=== PATIENT | female | born 1960 | race American Indian/Alaskan Native ===

== ENCOUNTER 2017-01-07 11:04 | Emergency (ER) | payer OTHER ==
[2017-01-07 11:18] VITALS: BP 155/96
--- NOTE | 2017-01-07 14:38 | Emergency Department Report ---
ED General Adult HPI - General Chief complaint: High BP Stated complaint: HIGH BP Time Seen by Provider: 01/07/17 14:04 Source: patient Mode of arrival: Ambulatory Limitations: No Limitations - History of Present Illness Initial comments: Patient was sent here from the dentist office for elevated blood pressure. Patient states that the dental office her blood pressure was 189/103. Upon arrival here her blood pressure was 155/96. She denies history of hypertension. Denies headache, dizziness, blurred vision, chest pain. Location: mouth Severity scale (0 -10): 10 Quality: aching, dull Consistency: constant Improves with: none Worsens with: none Associated Symptoms: denies other symptoms - Related Data Previous Rx's Medication Instructions Recorded Last Taken Type amLODIPine [Norvasc] 5 mg PO DAILY #14 tab 01/07/17 Unknown Rx Allergies Allergy/AdvReac Type Severity Reaction Status Date / Time No Known Allergies Allergy Unverified 01/07/17 11:19 ED Review of Systems ROS: Stated complaint: HIGH BP Other details as noted in HPI Constitutional: denies: chills, fever Eyes: denies: eye pain, eye discharge, vision change ENT: as per HPI, dental pain Respiratory: denies: cough, shortness of breath, wheezing Cardiovascular: denies: chest pain, palpitations Gastrointestinal: denies: abdominal pain, nausea, diarrhea Genitourinary: denies: urgency, dysuria, discharge Musculoskeletal: denies: back pain, joint swelling, arthralgia Skin: denies: rash, lesions Neurological: denies: headache, weakness, paresthesias ED Past Medical Hx - Past Medical History Hx Diabetes: Yes Additional medical history: HIGH CHOLESTEROL - Surgical History Additional Surgical History: TUBAL LIGATION. PARTIAL HYSTERECTOMY - Social History Smoking Status: Never Smoker Substance Use Type: None - Medications Home Medications: Home Medications Medication Instructions Recorded Confirmed Last Taken Type amLODIPine [Norvasc] 5 mg PO DAILY #14 tab 01/07/17 Unknown Rx ED Physical Exam - General Limitations: No Limitations General appearance: alert, in no apparent distress - Head Head exam: Present: atraumatic, normocephalic - Eye Eye exam: Present: normal appearance - ENT ENT exam: Present: mucous membranes moist - Neck Neck exam: Present: normal inspection, tenderness (left cervical anterior), full ROM - Respiratory Respiratory exam: Present: normal lung sounds bilaterally. Absent: respiratory distress - Cardiovascular Cardiovascular Exam: Present: regular rate, normal rhythm. Absent: systolic murmur, diastolic murmur, rubs, gallop - GI/Abdominal GI/Abdominal exam: Present: soft, normal bowel sounds - Neurological Exam Neurological exam: Present: alert, oriented X3 - Psychiatric Psychiatric exam: Present: normal affect, normal mood - Skin Skin exam: Present: warm, dry, intact, normal color. Absent: rash ED Course Vital Signs 01/07/17 11:10 Temperature 98.3 F Pulse Rate 77 Respiratory 19 Rate Blood Pressure 155/96 O2 Sat by Pulse 99 Oximetry ED Medical Decision Making - Medical Decision Making Patient presents with elevated blood pressure. She was at dental office this morning to have a tooth pulled which she cannot have done. She states they did give her amoxicillin for tooth abscess. I will give her Norvasc 5 mg and advised her to follow-up with PCP. - Differential Diagnosis hypertension, dental pain, tooth abscess Critical Care Time: No Critical care attestation.: If time is entered above; I have spent that time in minutes in the direct care of this critically ill patient, excluding procedure time. ED Disposition Clinical Impression: Tooth abscess, Hypertension Disposition: DISCHARGED TO HOME OR SELFCARE Is pt being admited?: No Does the pt Need Aspirin: No Condition: Stable Instructions: Hypertension (ED), Dental Abscess (ED) Additional Instructions: Follow-up with PCP as discussed. Please be advised that elevated blood pressure not control can lead to heart attack, stroke, end organ failure. Prescriptions: amLODIPine [Norvasc] 5 mg PO DAILY #14 tab Referrals: JACK MCGHEE MD [Primary Care Provider] - 3-5 Days [facility] [Outside] - 3-5 Days Forms: Work/School Release Form(ED) Time of Disposition: 14:40
== END 2017-01-07 14:48 | disposition home or self-care (01) ==
LOC: ED 11:04
DX: I10 Essential (primary) hypertension (principal); K04.7 Periapical abscess without sinus; E11.9 Type 2 diabetes mellitus without complications; E78.00 Pure hypercholesterolemia, unspecified
CPT/HCPCS: 99282

== ENCOUNTER 2021-08-31 16:29 | Emergency (ER) | payer OTHER ==
[2021-08-31] MEDS ORDERED: oxyCODONE /ACETAMINOPHEN 5-325MG TAB PO ONE (17:14)
--- NOTE | 2021-08-31 17:58 | XRay Report ---
RIGHT FOOT 3 VIEWS INDICATION / CLINICAL INFORMATION: Right great toe wound, suspected osteoma myelitis COMPARISON: None available. FINDINGS: BONES and JOINT(S): No acute fracture or subluxation. No suspicious cortical destruction. There is an inferior calcaneal enthesophyte without other significant arthritis. SOFT TISSUES: Severe edema is seen throughout the first with a plantar wing measuring approximately 8 mm. There is severe generalized atherosclerosis. ADDITIONAL FINDINGS: None. IMPRESSION: Right first toe wound with associated edema without radiographic evidence of osteomyelitis. Signer Name: Antony Santiago MD Signed: 08/31/2021 5:54 PM Workstation Name: [id number]
[2021-08-31 18:28] LABS: Alanine Aminotransferase 12 units/L (7-56); Albumin 3.7 g/dL (3.9-5); BUN/Creatinine Ratio 14; Blood Urea Nitrogen 13 mg/dL (7-17); Calcium 9.3 mg/dL (8.4-10.2); Hemolysis Index 15
--- NOTE | 2021-08-31 18:33 | Emergency Department Report ---
ED General Adult HPI - General Chief complaint: Extremity Injury, Lower Stated complaint: RT FOOT TOE INFECTION Time Seen by Provider: 08/31/21 17:06 Source: patient Mode of arrival: Ambulatory Limitations: No Limitations - History of Present Illness Initial comments: 61-year-old -[place] female patient with history of hypertension and diabetes presents with complaints of right great toe pain and swelling x1 month. Patient states her symptoms began after cutting a callus with nail clippers. She states over the past few days the pain has worsened and rates it as a 10/10 in severity. Patient states compliance with her antihypertensive meds and diabetic medications, however she states that her diabetes is not well controlled and her numbers are normally in the 200s for her blood glucose. She denies any fever/chills/sweats or difficulty moving her foot. Severity scale (0 -10): 7 - Related Data Previous Rx's Medication Instructions Recorded Last Taken Type amLODIPine [Norvasc] 5 mg PO DAILY #14 tab 01/07/17 Unknown Rx Acetaminophen/Codeine [Tylenol 1 tab PO Q8H PRN #10 tab 08/31/21 Unknown Rx /Codeine # 3 tab] Clindamycin [Clindamycin CAP] 300 mg PO Q6H 10 Days #40 capsule 08/31/21 Unknown Rx Ibuprofen [Motrin 800 MG tab] 800 mg PO Q8HR PRN #20 tablet 08/31/21 Unknown Rx Mupirocin [Bactroban 2% OINT] 1 applic TP TID 14 Days #1 tube 08/31/21 Unknown Rx Allergies Allergy/AdvReac Type Severity Reaction Status Date / Time No Known Allergies Allergy Verified 08/31/21 17:03 ED Review of Systems ROS: Stated complaint: RT FOOT TOE INFECTION Other details as noted in HPI Constitutional: denies: chills, diaphoresis, fever, malaise, weakness Gastrointestinal: denies: nausea, vomiting Musculoskeletal: joint swelling, arthralgia Skin: denies: change in color Neurological: abnormal gait. denies: numbness, paresthesias ED Past Medical Hx - Past Medical History Hx Hypertension: Yes Hx Diabetes: Yes Additional medical history: HIGH CHOLESTEROL - Surgical History Additional Surgical History: TUBAL LIGATION. PARTIAL HYSTERECTOMY - Social History Smoking Status: Never Smoker - Medications Home Medications: Home Medications Medication Instructions Recorded Confirmed Last Taken Type amLODIPine [Norvasc] 5 mg PO DAILY #14 tab 01/07/17 Unknown Rx Acetaminophen/Codeine [Tylenol 1 tab PO Q8H PRN #10 tab 08/31/21 Unknown Rx /Codeine # 3 tab] Clindamycin [Clindamycin CAP] 300 mg PO Q6H 10 Days #40 capsule 08/31/21 Unknown Rx Ibuprofen [Motrin 800 MG tab] 800 mg PO Q8HR PRN #20 tablet 08/31/21 Unknown Rx Mupirocin [Bactroban 2% OINT] 1 applic TP TID 14 Days #1 tube 08/31/21 Unknown Rx ED Physical Exam - General Limitations: No Limitations General appearance: alert, in no apparent distress - Head Head exam: Present: atraumatic, normocephalic - Eye Eye exam: Present: normal appearance. Absent: scleral icterus - Respiratory Respiratory exam: Absent: respiratory distress - Cardiovascular Cardiovascular Exam: Present: regular rate, normal rhythm - Extremities Exam Extremities exam: Present: other (Significant swelling noted to right great toe with lateral plantar open wound noted without active drainage; patient has normal pedal pulse; difficulty moving the toe due to swelling; no cellulitis noted) - Neurological Exam Neurological exam: Present: alert, oriented X3 - Psychiatric Psychiatric exam: Present: normal affect, normal mood - Skin Skin exam: Present: warm, dry. Absent: rash ED Course Vital Signs 08/31/21 17:02 Temperature 99.0 F Pulse Rate 92 H Respiratory 16 Rate Blood Pressure 135/79 [Right] O2 Sat by Pulse 95 Oximetry ED Medical Decision Making - Lab Data Result diagrams: 08/31/21 17:38 Lab Results 08/31/21 08/31/21 Range/Units 17:38 17:38 WBC 8.3 (4.5-11.0) K/mm3 RBC 4.51 (3.65-5.03) M/mm3 Hgb 12.4 (10.1-14.3) gm/dl Hct 36.6 (30.3-42.9) % MCV 81 (79-97) fl MCH 27 L (28-32) pg MCHC 34 (30-34) % RDW 14.1 (13.2-15.2) % Plt Count 209 (140-440) K/mm3 Lymph % (Auto) 37.7 H (13.4-35.0) % Garza % (Auto) 7.1 (0.0-7.3) % Eos % (Auto) 1.8 (0.0-4.3) % Baso % (Auto) 0.8 (0.0-1.8) % Lymph # (Auto) 3.1 (1.2-5.4) K/mm3 Garza # (Auto) 0.6 (0.0-0.8) K/mm3 Eos # (Auto) 0.1 (0.0-0.4) K/mm3 Baso # (Auto) 0.1 (0.0-0.1) K/mm3 Seg Neutrophils % 52.6 (40.0-70.0) % Seg Neutrophils # 4.4 (1.8-7.7) K/mm3 Sodium 136 L (137-145) mmol/L Potassium 3.5 L (3.6-5.0) mmol/L Chloride 97.6 L (98-107) mmol/L Carbon Dioxide 27 (22-30) mmol/L Anion Gap 15 mmol/L BUN 13 (7-17) mg/dL Creatinine 0.9 (0.6-1.2) mg/dL Estimated GFR > 60 ml/min BUN/Creatinine Ratio 14 % Glucose 278 H (65-100) mg/dL Calcium 9.3 (8.4-10.2) mg/dL Total Bilirubin 0.40 (0.1-1.2) mg/dL AST 16 (5-40) units/L ALT 12 (7-56) units/L Alkaline Phosphatase 128 (35-129) units/L Total Protein 7.5 (6.3-8.2) g/dL Albumin 3.7 L (3.9-5) g/dL Albumin/Globulin Ratio 1.0 % - Radiology Data Radiology results: report reviewed RIGHT FOOT 3 VIEWS INDICATION / CLINICAL INFORMATION: Right great toe wound, suspected osteoma myelitis COMPARISON: None available. FINDINGS: BONES and JOINT(S): No acute fracture or subluxation. No suspicious cortical destruction. There is an inferior calcaneal enthesophyte without other significant arthritis. SOFT TISSUES: Severe edema is seen throughout the first with a plantar wing measuring approximately 8 mm. There is severe generalized atherosclerosis. ADDITIONAL FINDINGS: None. IMPRESSION: Right first toe wound with associated edema without radiographic evidence of osteomyelitis. - Medical Decision Making 61-year-old -[place] female patient with history of hypertension and diabetes presents with complaints of right great toe pain and swelling x1 month. Patient states her symptoms began after cutting a callus with nail clippers. She states over the past few days the pain has worsened and rates it as a 10/10 in severity. Patient states compliance with her antihypertensive meds and diabetic medications, however she states that her diabetes is not well controlled and her numbers are normally in the 200s for her blood glucose. She denies any fever/chills/sweats or difficulty moving her foot. X-rays negative for osteomyelitis. White count on CBC is normal. Patient is afebrile and nontachycardic. She is overall well-appearing on exam. Will treat for infection of the toe with clindamycin and mupirocin. Discussed importance of better control of diabetes. Also discussed wound care and signs and symptoms that should prompt immediate return to the emergency department in detail patient verbalizes understanding. Referral given for podiatry and patient informed to follow-up within the next 3 days. She is well-appearing and stable for discharge home. Patient denies any further questions at this time states understanding of diagnosis and plan of care Critical care attestation.: If time is entered above; I have spent that time in minutes in the direct care of this critically ill patient, excluding procedure time. ED Disposition Clinical Impression: Toe infection Disposition: 01 HOME / SELF CARE / HOMELESS Is pt being admited?: No Condition: Stable Instructions: Cellulitis, Adult Prescriptions: Mupirocin [Bactroban 2% OINT] 1 applic TP TID 14 Days #1 tube Clindamycin [Clindamycin CAP] 300 mg PO Q6H 10 Days #40 capsule Ibuprofen [Motrin 800 MG tab] 800 mg PO Q8HR PRN #20 tablet PRN Reason: pain Acetaminophen/Codeine [Tylenol /Codeine # 3 tab] 1 tab PO Q8H PRN #10 tab PRN Reason: Pain , Severe (7-10) Referrals: DEBBI TOWNSEND DPM [Staff Physician] - 3-5 Days
[2021-08-31 18:52] LABS: Basophils # (Auto) 0.1 K/mm3 (0.0-0.1); Basophils % (Auto) 0.8 % (0.0-1.8); Eosinophils # (Auto) 0.1 K/mm3 (0.0-0.4); Eosinophils % (Auto) 1.8 % (0.0-4.3); Hematocrit 36.6 % (30.3-42.9); Hemoglobin 12.4 gm/dl (10.1-14.3); Lymphocytes # (Auto) 3.1 K/mm3 (1.2-5.4); Lymphocytes % (Auto) 37.7 % (13.4-35.0); Mean Corpuscular HGB Conc 34 % (30-34); Mean Corpuscular Volume 81 fl (79-97); Monocytes # (Auto) 0.6 K/mm3 (0.0-0.8); Monocytes % (Auto) 7.1 % (0.0-7.3); Platelet Count 209 K/mm3 (140-440); Red Blood Count 4.51 M/mm3 (3.65-5.03); Red Cell Distribution Width 14.1 % (13.2-15.2)
[2021-08-31] MEDS ORDERED: NEOMY 3.5 MG/BACIT 400 UNITS/POLY B 5000 UNITS/GM OINT PACKET TP STA (18:52)
[2021-08-31] MEDS ORDERED: LORazepam 2 MG/ML VIAL ONE (19:29)
[2021-08-31 19:37] VITALS: BP 153/84
== END 2021-08-31 19:46 | disposition home or self-care (01) ==
LOC: ED 16:29
DX: L08.9 Local infection of the skin and subcutaneous tissue, unspecified (principal); I10 Essential (primary) hypertension; E11.8 Type 2 diabetes mellitus with unspecified complications; E78.00 Pure hypercholesterolemia, unspecified; Z98.890 Other specified postprocedural states
CPT/HCPCS: 36415; 80053; 85025; 99284; J2060